=== PATIENT | female | born 2000 | race Caucasian/White ===

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

== ENCOUNTER 2022-07-13 09:55 | Emergency (ER) | payer BC, MEDICAID ==
[~2022-07-13] VITALS: Ht 170.2 cm; Wt 130.0 kg
[2022-07-13] MEDS ORDERED: AMOX-277 PO (11:04)
[2022-07-13] MEDS ORDERED: NAPR500T31 PO (11:04)
[2022-07-13 11:21] VITALS: BP 134/81
== END 2022-07-13 11:24 | disposition home or self-care (01) ==
LOC: ER 09:55
DX: S61.231A Puncture wound without foreign body of left index finger without damage to nail, initial encounter (principal); W54.0XXA Bitten by dog, initial encounter; Y93.89 Activity, other specified; Y92.89 Other specified places as the place of occurrence of the external cause; Y99.8 Other external cause status
CPT/HCPCS: 73130

== ENCOUNTER 2024-04-29 13:08 | Emergency (ER) | payer BC ==
[~2024-04-29] VITALS: Ht 170.2 cm; Wt 84.0 kg
[~2024-04-29 13:08] MED LIST: AMOX875T4 PO; NAPR-746 PO
--- NOTE | 2024-04-29 16:24 | ED.PDOC ---
General HPI Comments 23 Y F with current 12 week presents to the ED with CC of pelvic pain, nausea and vomiting. Patient states she has been experiencing left lower pelvic pain described as cramping with associated symptoms of N/V x3days. Patient states she is 12 weeks and has otherwise had a normal prior to her recent symptoms. Patient denies suprapubic pain, dysuria, vaginal bleeding, abnormal fluid discharge or diarrhea. Chief Complaint: Pelvic Pain Time Seen by MD: 19:00 Primary Care Provider: ho Reviewed notes: Nurses Notes, Medications, Allergies Allergies: Coded Allergies: NO KNOWN ALLERGIES (Unverified , 04/24/17) Home Meds Active Scripts Acetaminophen (Tylenol Extra Strength) 500 Mg Tab, 1000 MG PO Q6HP PRN, #30 TAB prn pain Prov:MILES BROOKS MD 04/29/24 Metoclopramide Hcl (Reglan) 10 Mg Tab, 10 MG PO Q6HPRN PRN, #30 TAB prn n/v Prov:MILES BROOKS MD 04/29/24 Doxylamine-Pyridoxine (DICLEGIS) 1 Tab Tab, 2 TAB OR HS PRN, #60 TAB prn n/v Prov:MILES BROOKS MD 04/29/24 Naproxen (Naproxen) 500 Mg Tab, 500 MG PO BID, #24 TAB Prov:SOHAN LAUREANO 07/13/22 Amoxicillin & Pot Clavulanate (Amoxicillin/Potassium Cla) 875 Mg Tab, 1 TAB PO BID, #14 TAB Prov:SOHAN LAUREANO 07/13/22 Information Source: Patient Mode of Arrival: Ambulatory Severity: Mild Timing: Days Duration: Since onset Prehospital treatment: None Onset: Spontaneous Symptoms: None History of: None Location: (L)Flank Modifying factors: None associated signs and symptoms: Nausea, Vomiting Past Medical History PAST MEDICAL HISTORY: Denies Surgical History: Denies all surgeries [employer] History: Other (Current 12 week , G1, P0) Family History Family History: Unknown Social History Smoker: Non-Smoker Alcohol: Denies ETOH Use Drugs: Denies Drug Use Lives In: Home Constitutional: denies: chills, diaphoresis, fatigue, fever, malaise, sweats, weakness, others EENTM: denies: blurred vision, double vision, ear bleeding, ear discharge, ear drainage, ear pain, ear ringing, eye pain, eye redness, hearing loss, mouth pain, mouth swelling, nasal discharge, nose bleeding, nose congestion, nose pain, photophobia, tearing, throat pain, throat swelling, voice changes, others Respiratory: denies: cough, hemoptysis, orthopnea, SOB at rest, shortness of breath, SOB with excertion, stridor, wheezing, others Cardiovascular: denies: chest pain, dizzy spells, diaphoresis, Dyspnea on exertion, edema, irregular heart beat, left arm pain, lightheadedness, palpitat ions, PND, syncope, others Gastrointestinal: reports: nausea, vomiting; denies: abdomen distended, abdominal pain, blood streaked bowels, constipated, diarrhea, dysphagia, difficulty swallowing, hematemesis, melena, poor appetite, poor fluid intake, rectal bleeding, rectal pain, others Genitourinary: denies: abnormal vagina bleeding, burning, dyspareunia, dysuria, flank pain, frequency, hematuria, incontinence, pain, , vagina discharge, urgency, others Neurological: denies: dizziness, fainting, headache, left sided numbness, left sided weakness, numbness, paresthesia, pre-existing deficit, right sided numbness, right sided weakness, seizure, speech problems, tingling, tremors, weakness, others Musculoskeletal: denies: back pain, gout, joint pain, joint swelling, muscle pain, muscle stiffness, neck pain, others Integumetry: denies: bruises, change in color, change in hair/nails, dryness, laceration, lesions, lumps, rash, wounds, others Hematologic/Lymphatic: denies: anemia, blood clots, easy bleeding, easy bruising, swollen glands, others Endocrine: denies: excessive hunger, excessive sweating, excessive thirst, excessive urination, flushing, intolerance to cold, intolerance to heat, un explained weight gain, unexplained weight loss, others Psychiatric: denies: anxiety, bipolar disorder, depression, hopeless, panic disorder, schizophrenia, sleepless, suicidal, others All Other Systems: Reviewed and Negative Physical Exam General Appearance: No Apparent Distress, Obese HEENT: Other (Moist mucous membranes) Neck: Full Range of Motion, Normal Inspection Respiratory: Lungs Clear, No Accessory Muscle Use, No Respiratory Distress, Normal Breath Sounds Cardiovascular: No Edema, No JVD, Regular Rate/Rhythm Breast Exam: Deferred Gastrointestinal: Non Tender, Soft Genitalia: Deferred Pelvic: Deferred Rectal: Deferred Extremities: Normal inspection, Normal range of motion, Non-tender, No pedal edema Neurologic: Alert (Oriented x4), Normal Affect, Normal Mood, Other (Ambulatory without difficulty. No gross focal deficit.) Cerebellar Function: NOT DONE Reflexes: NOT DONE Skin: Dry, Normal Color, Warm Lymphatic: NOT DONE Was a procedure done? Was a procedure done?: No Differential Diagnosis Kidney stone (Female): Urolithiasis Urinary Problem (Female): UTI Other Differential Diagnosis Hyperemesis gravidarum, gastritis, gastroenteritis, diverticular disease, UTI, kidney stone, electrolyte imbalance, dehydration, viral illness, distress/demise, among others X-Ray, Labs, Meds, VS Vital Signs Date Time Temp Pulse Resp B/P (MAP) Pulse Ox O2 Delivery O2 Flow Rate FiO2 04/29/24 18:27 98.0 100 18 131/96 (108) 98 98.0 04/29/24 18:26 100 18 131/96 04/29/24 17:01 103 16 145/85 04/29/24 16:57 103 18 145/85 (105) 96 04/29/24 16:57 103 18 96 Room Air 04/29/24 13:10 99.3 106 18 146/83 (104) 95 Lab Test 04/29/24 17:05 04/29/24 16:40 Range/Units White Blood Count 14.3 H 4.4-10.8 10^3/uL Red Blood Count 5.24 H 4.0-5.20 10^6/uL Hemoglobin 14.2 12.2-16.2 g/dL Hematocrit 43.0 36.0-46.0 % Mean Corpuscular Volume 82.1 80.0-100.0 fL Mean Corpuscular Hemoglobin 27.2 L 28.0-32.0 pg Mean Corpuscular Hemoglobin Concent 33.1 32.0-36.0 g/dL Red Cell Distribution Width 16.5 H 11.8-14.3 % Platelet Count 299 140-450 10^3/uL Mean Platelet Volume 9.0 6.9-10.8 fL Neutrophils (%) (Auto) 80.2 H 37.0-80.0 % Lymphocytes (%) (Auto) 13.9 10.0-50.0 % Monocytes (%) (Auto) 4.8 0.0-12.0 % Eosinophils (%) (Auto) 0.1 0.0-7.0 % Basophils (%) (Auto) 1.0 0.0-2.0 % Neutrophils # (Auto) 11.5 H 1.6-8.6 10 ^3/uL Lymphocytes # (Auto) 2.0 0.4-5.4 10 ^3/uL Monocytes # (Auto) 0.7 0-1.3 10 ^3/uL Eosinophils # (Auto) 0 0-0.8 10 ^3/uL Basophils # (Auto) 0.1 0-0.2 10 ^3/uL Nucleated Red Blood Cells 0.1 % Sodium Level 138 136-145 mmol/L Potassium Level 4.3 3.5-5.1 mmol/L Chloride Level 106 98-107 mmol/L Carbon Dioxide Level 24 20-31 mmol/L Anion Gap 8 5-15 Blood Urea Nitrogen 10 9-23 mg/dL Creatinine 0.63 0.550-1.02 mg/dL Glomerular Filtration Rate Calc 126 >90 mL/min BUN/Creatinine Ratio 15.9 10.0-20.0 Serum Glucose 90 74-106 mg/dL Lactic Acid Level 1.1 0.4-2.0 mmol/L Calcium Level 10.1 8.7-10.4 mg/dL Total Bilirubin 0.7 0.2-1.0 mg/dL Aspartate Amino Transferase (AST) 19 13-40 U/L Alanine Aminotransferase (ALT) 30 7-40 U/L Alkaline Phosphatase 69 46-116 U/L Total Protein 7.2 5.7-8.2 g/dL Albumin 4.7 3.2-4.8 g/dL Beta HCG, Quantitative 28918.3 H 1.5-4.2 mIU/mL Urine Color Yellow Yellow Urine Clarity Turbid H Clear Urine pH 6.0 5.0-9.0 Urine Specific [place] 1.035 1.001-1.035 Urine Protein 1+ H Negative Urine Ketones 4+ H Negative Urine Blood Negative Negative /uL Urine Nitrite Negative Negative Urine Bilirubin Negative Negative Urine Urobilinogen 3 H Negative mg/dL Urine Leukocyte Esterase Negative Negative /uL Urine RBC 1 0 - 4 /hpf Urine WBC 4 0 - 5 /hpf Urine Squamous Epithelial Cells Mod <5 /hpf Urine Bacteria None seen None Seen /hpf Urine Hyaline Casts Few 0 - 2 /lpf Urine Mucus Few None Seen Urine Glucose Normal Normal mg/dL Current Medications Medications (Trade) Dose Ordered Sig/Alexandrea Route Start Time Stop Time Status Last Admin Sodium Chloride 1,000 ml @ 1,000 mls/hr Q1H ONCE IV 04/29/24 16:15 04/29/24 17:14 DC 04/29/24 16:58 Morphine Sulfate 4 mg ONCE ONCE IV 04/29/24 16:15 04/29/24 16:16 DC 04/29/24 17:01 Ondansetron HCl (Zofran) 4 mg ONCE ONCE IV 04/29/24 16:15 04/29/24 16:16 DC 04/29/24 16:57 [place] [address] Ph: [phone] DIAGNOSTIC IMAGING Diagnostic Imaging Report : [id number] Signed PATIENT: CARLOS STACK RACCT: [id number] UNIT: [id number] : 2000 LOC: ER ROOM / BED: / AGE / SEX: 23 / F ADM STATUS: REG ER SERVICE 1614 ORDERING PHYSICIAN: MILES BROOKS MD PROCEDURE(s): OB4US - OB ULTRASOUND COMP LESS 14WKS REASON: LLQ pain n/v ORDER NUMBER(s): [id number], ACCESSION NUMBER(s): [id number] EXAM: US OB ULTRASOUND COMP LESS 14WKS CLINICAL HISTORY: LLQ pain n/v COMPARISON: None TECHNIQUE: Grayscale, color-flow Doppler, and spectral Doppler ultrasound of the pelvis is performed by transabdominal technique. Findings: Single live intrauterine with gestational sac, yolk sac and embryo visualized. heart rate of 163 bpm. Estimated gestational age 12 weeks 0 days based on parameters including crown-rump length of 5.4. Uterus measures 12.0 x 5.9 x 9.6 cm in size. Cervical os appears closed. No evidence of subchorionic hemorrhage. Right ovary not visualized. Left ovary measures 3.0 x 1.7 x 2.3 cm. Normal left ovarian color Doppler. No free fluid within the cul-de-sac. Impression: 1. Single live intrauterine with heart rate of 163 bpm. Estimated gestational age 12 weeks 0 days with estimated date of confinement 11/11/2024. 2. No evidence of subchorionic hemorrhage. Cervical os appears closed. 3. Left ovary is grossly unremarkable. ATED BY: JOSELIN BRIONES DO DICTATED DATE/TIME: 04/29/241829 SIGNED BY: JOSELIN BRIONES DO SIGNED DATE/TIME: 04/29/241829 CC: X-Ray, Labs, Meds, VS Comment 23-year-old female with current 12 week complaining of nausea, vomiting and left lower pelvic cramping Vitals remarkable for heart rate 106, BP 146/83 Exam unremarkable Rhythm strip independently interpreted by me: Sinus tach, rate 100, no ectopy. Ob ultrasound: Impression: 1. Single live intrauterine with heart rate of 163 bpm. Estimated gestational age 12 weeks 0 days with estimated date of confinement 11/11/2024. 2. No evidence of subchorionic hemorrhage. Cervical os appears closed. 3. Left ovary is grossly unremarkable. CBC remarkable for WBC 14.3, CMP unremarkable, serum quantitative hCG 01400.3 Lactate normal No other abnormalities of acute significance Patient treated with the following in the ED: 1 L 0.9 normal saline IV bolus, morphine 4 mg IV, Zofran 4 mg IV On re-evaluation, patient states cramping has resolved, vitals are stable, and she tolerated p.o. fluids. Hospitalization was considered, however patient had rapid improvement of her symptoms with treatment in the ED, and I no longer feel hospitalization is nece ssary. Patient appears stable for outpatient treatment with close follow-up with her OBGYN. Rx diclegis, Reglan, Tylenol Time of 1ST Reevaluation: 19:30 Reevaluation 1ST: Unchanged Patient Education/Counseling: Diagnosis, Treatment Family Education/Counseling: No Family Present Departure 1 Departure Time of Disposition: 20:00 Impression: Primary Impression: Abdominal pain affecting Additional Impression: Hyperemesis gravidarum Disposition: HOME / SELF CARE / HOMELESS Condition: Stable Additional Instructions: Your blood tests and urine tests were essentially unremarkable. Your ultrasound showed the baby looks well. Please see the report below. Follow-up with your OBGYN in 1-2 days. I have prescribed medication for pain, nausea and vomiting. [address] [address] Ph: [phone] DIAGNOSTIC IMAGING Diagnostic Imaging Report : [id number] Signed PATIENT: CARLOS STACK ACCT: [id number] UNIT: [id number] : 2000 LOC: ER ROOM / BED: / AGE / SEX: 23 / F ADM STATUS: REG ER SERVICE 1614 ORDERING PHYSICIAN: MILES BROOKS MD PROCEDURE(s): OB4US - OB ULTRASOUND COMP LESS 14WKS REASON: LLQ pain n/v ORDER NUMBER(s): [id number], ACCESSION NUMBER(s): [id number] EXAM: US OB ULTRASOUND COMP LESS 14WKS CLINICAL HISTORY: LLQ pain n/v COMPARISON: None TECHNIQUE: Grayscale, color-flow Doppler, and spectral Doppler ultrasound of the pelvis is performed by transabdominal technique. Findings: Single live intrauterine with gestational sac, yolk sac and embryo visualized. heart rate of 163 bpm. Estimated gestational age 12 weeks 0 days based on parameters including crown-rump length of 5.4. Uterus measures 12.0 x 5.9 x 9.6 cm in size. Cervical os appears closed. No evidence of subchorionic hemorrhage. Right ovary not visualized. Left ovary measures 3.0 x 1.7 x 2.3 cm. Normal left ovarian color Doppler. No free fluid within the cul-de-sac. Impression: 1. Single live intrauterine with heart rate of 163 bpm. Estimated gestational age 12 weeks 0 days with estimated date of confinement 11/11/2024. 2. No evidence of subchorionic hemorrhage. Cervical os appears closed. 3. Left ovary is grossly unremarkable. ATED BY: JOSELIN BRIONES DO DICTATED DATE/TIME: 04/29/24 1830 e-Prescriptions Acetaminophen (Tylenol Extra Strength) 500 Mg Tab 1000 MG PO Q6HP PRN, #30 TAB prn pain Prov: MILES BROOKS MD 04/29/24 Metoclopramide Hcl (Reglan) 10 Mg Tab 10 MG PO Q6HPRN PRN, #30 TAB prn n/v Prov: MILES BROOKS MD 04/29/24 Doxylamine-Pyridoxine (DICLEGIS) 1 Tab Tab 2 TAB OR HS PRN, #60 TAB prn n/v Prov: MILES BROOKS MD 04/29/24 Discharged With: Relative Critical Care Note Critical Care Time?: No Stability Stability form required: No Heart Score Heart Score: Heart Score Response (Comments) Value History N/A 0 EKG N/A 0 Age N/A 0 Risk Factors N/A 0 Troponin N/A 0 Total 0 I personally scribed for MILES BROOKS MD ([email or web address]) on 04/29/24 at 16:24. Electronically submitted by Alicia Juarez ([email or web address]). I personally scribed for MILES BROOKS MD ([email or web address]) on 04/29/24 at 18:47. Electronically submitted by Alicia Juarez ([email or web address]). I personally scribed for MILES BROOKS MD ([email or web address]) on 04/29/24 at 19:44. Electronically submitted by Alicia Juarez ([email or web address]). MILES BROOKS MD Apr 29, 2024 16:24
[2024-04-29] MEDS: ONDANSETRON HCL 4 MG/2 ML VIAL IV ONE (16:57)
[2024-04-29] MEDS: SODIUM CHLORIDE 0.9% 1,000 ML IV ONE (16:58)
[2024-04-29] MEDS: MORPHINE SULFATE 4 MG/ML SYR/VIAL IV ONE (17:01)
[2024-04-29 17:21] LABS: Basophils # (auto) 0.1 10 ^3/uL (0-0.2); Eosinophils # (auto) 0 10 ^3/uL (0-0.8); Eosinophils % (auto) 0.1 % (0.0-7.0); Hemoglobin 14.2 g/dL (12.2-16.2); Lymphocytes % (auto) 13.9 % (10.0-50.0); Mean Corpuscular Hemoglobin 27.2 pg (28.0-32.0); Mean Corpuscular Hgb Conc. 33.1 g/dL (32.0-36.0); Mean Corpuscular Volume 82.1 fL (80.0-100.0); Monocytes # (auto) 0.7 10 ^3/uL (0-1.3); Monocytes % (auto) 4.8 % (0.0-12.0); Neutrophils # (auto) 11.5 10 ^3/uL (1.6-8.6); Neutrophils % (auto) 80.2 % (37.0-80.0); Nucleated Red Blood Cells % 0.1 %; Platelet Count (auto) 299 10^3/uL (140-450); Red Blood Cells 5.24 10^6/uL (4.0-5.20); Red Cell Distribution Width 16.5 % (11.8-14.3); White Blood Cell 14.3 10^3/uL (4.4-10.8)
[2024-04-29 17:36] LABS: Alanine Aminotransferase 30 U/L (7-40); Albumin 4.7 g/dL (3.2-4.8); Alkaline Phosphatase 69 U/L (46-116); Anion Gap 8 (5-15); Aspartate Aminotransferase 19 U/L (13-40); BUN/Creatinine Ratio 15.9 (10.0-20.0); Bilirubin, Total 0.7 mg/dL (0.2-1.0); Blood Urea Nitrogen 10 mg/dL (9-23); Calcium 10.1 mg/dL (8.7-10.4); Carbon Dioxide 24 mmol/L (20-31); Chloride 106 mmol/L (98-107); Glucose 90 mg/dL (74-106); Potassium 4.3 mmol/L (3.5-5.1); Sodium 138 mmol/L (136-145); Total Protein 7.2 g/dL (5.7-8.2)
--- NOTE | 2024-04-29 18:33 | DVH ---
EXAM: US OB ULTRASOUND COMP LESS 14WKS CLINICAL HISTORY: LLQ pain n/v COMPARISON: None TECHNIQUE: Grayscale, color-flow Doppler, and spectral Doppler ultrasound of the pelvis is performed by transabdominal technique. Findings: Single live intrauterine with gestational sac, yolk sac and embryo visualized. heart rate of 163 bpm. Estimated gestational age 12 weeks 0 days based on parameters including crown- rump length of 5.4. Uterus measures 12.0 x 5.9 x 9.6 cm in size. Cervical os appears closed. No evidence of subchorionic hemorrhage. Right ovary not visualized. Left ovary measures 3.0 x 1.7 x 2.3 cm. Normal left ovarian color Doppler . No free fluid within the cul-de-sac. Impression: 1. Single live intrauterine with heart rate of 163 bpm. Estimated gestational age 12 weeks 0 days with estimated date of confinement 11/11/2024. 2. No evidence of subchorionic hemorrhage. Cervical os appears closed. 3. Left ovary is grossly unremarkable.
[2024-04-29 18:39] LABS: Urine Bacteria None Seen /hpf (None Seen)
[2024-04-29 19:15] LABS: Urine Blood Negative /uL (Negative); Urine Clarity Turbid (Clear); Urine Color Yellow (Yellow); Urine Hyaline Cast FEW /lpf (0 - 2); Urine Mucus FEW (None Seen); Urine Protein, UAD 1+ (Negative); Urine Specific Gravity 1.035 (1.001-1.035); Urine Squamous Epithelial Cell MOD /hpf (<5); Urine Urobilinogen 3 mg/dL (Negative); Urine WBC 4 /hpf (0 - 5)
[2024-04-29] MEDS ORDERED: ACET-1304 PO (20:10)
[2024-04-29] MEDS ORDERED: DOXY10TA OR (20:10)
[2024-04-29] MEDS ORDERED: METO-281 PO (20:10)
[2024-04-29 20:45] VITALS: BP 130/77; PULSE 98; RESP 18; TEMP 98.1; O2SAT 99
== END 2024-04-29 20:45 | disposition home or self-care (01) ==
LOC: ER 13:50
DX: O26.891 Other specified pregnancy related conditions, first trimester (principal); R10.2 Pelvic and perineal pain; O21.0 Mild hyperemesis gravidarum; Z79.899 Other long term (current) drug therapy; Z3A.12 12 weeks gestation of pregnancy
CPT/HCPCS: 36415; 76801; 80053; 81001; 83605; 84702; 85025; 87086; 96361; 96374; 96375; 99285; J2270; J2405; J7030

== ENCOUNTER 2025-02-18 03:20 | Inpatient (IN) | payer BC ==
[2025-02-18] VITALS (7 sets, daily range): BP systolic 104–126; BP diastolic 61–80; PULSE 68–94; RESP 17–18; TEMP 97.6–98.1; O2SAT 98–100
[~2025-02-18] VITALS: Ht 170.2 cm; Wt 145.7 kg
[~2025-02-18 03:20] MED LIST changes: +ACET-1304 PO; +DOXY10TA OR; +METO-281 PO
--- NOTE | 2025-02-18 03:39 | ED.PDOC ---
GI ASSESSMENT HPI Comments 24 year old female came to ER due to abdominal pain. Patient has no medical problems nor does she have any abdominal surgeries. States since 1900 hours last night, she has been having constant RUQ/ periumbilical abdominal pain radiating to her back, associated with nausea and urinary frequcny. Denies any fever, vomiting, changes in bowel habits or dysuria/ hematuria. Patient medicated with Tylenol but offered no relief REVIEW OF SYSTEMS: General: No fever, no chills, or fatigue HEENT: No sore throat, no earache, no congestion, no neck pain. Cardiac: No chest pain. No palpitations. Lungs: No shortness of breath, no cough. GI: No nausea, no vomiting, no diarrhea, no constipation, (+) abdominal pain : No dysuria, frequency, or urgency. No hematuria. Musculoskeletal: No joint pain , no joint swelling, no extremity edema. (+) back pain Skin: No rash, no itching. Neuro: No headache, no dizziness, no weakness EXAM: General: Awake, alert and oriented. No acute distress. Skin: Skin in warm, dry and intact. Appropriate color for ethnicity. HEENT: The head is normocephalic and atraumatic. Conjunctivae are clear without exudates or hemorrhage. Sclera is non-icteric. EOM are intact. No signs of n ystagmus. Eyelids are normal in appearance without swelling or lesions. Oral mucosa is pink and moist Neck: The neck is supple with normal range of motion. No JVD. Cardiac: Heart rate and rhythm are normal. No murmurs, gallops, or rubs are auscultated. Respiratory: No signs of respiratory distress. Lung sounds are clear in all lobes bilaterally without rales, rhonchi, or wheezes. Abdominal: Abdomen is soft, non-tender without distention. Bowel sounds are present and normoactive in all four quadrants. Extremities: Upper and lower extremities are atraumatic in appearance without deformity or edema. Neurological: The patient is awake, alert and oriented to person, place, and time with normal speech. Speech is clear. There is no facial asymmetry. Psychiatric: Appropriate mood and affect. Good judgement and insight Chief Complaint: Abdominal Pain Time Seen by MD: 03:39 Primary Care Provider: denies Reviewed Notes: Nurses Notes Allergies: Coded Allergies: NO KNOWN ALLERGIES (Unverified , 04/24/17) Home Meds Active Scripts Acetaminophen (Tylenol Extra Strength) 500 Mg Tab, 1000 MG PO Q6HP PRN, #30 TAB prn pain Prov:MILES BROOKS MD 04/29/24 Metoclopramide Hcl (Reglan) 10 Mg Tab, 10 MG PO Q6HPRN PRN, #30 TAB prn n/v Prov:MILES BROOKS MD 04/29/24 Doxylamine-Pyridoxine (DICLEGIS) 1 Tab Tab, 2 TAB OR HS PRN, #60 TAB prn n/v Prov:MILES BROOKS MD 04/29/24 Naproxen (Naproxen) 500 Mg Tab, 500 MG PO BID, #24 TAB Prov:SOHAN LAUREANO 07/13/22 Amoxicillin & Pot Clavulanate (Amoxicillin/Potassium Cla) 875 Mg Tab, 1 TAB PO BID, #14 TAB Prov:SOHAN LAUREANO 07/13/22 Information Source: Patient Mode of Arrival: Ambulatory Past Medical History PAST MEDICAL HISTORY: Denies Surgical History: Tonsillectomy IMPLANT COORDINATOR History: Denies all IMPLANT COORDINATOR Hx, Other Family History Family History: Reviewed,noncontributory to illness, Unknown Social History Smoker: Non-Smoker Alcohol: Denies ETOH Use Drugs: Denies Drug Use Lives In: Home Was a procedure done? Was a procedure done?: No GI differential Dx Differential Diagnosis: Diverticular disease, Gastritis/PUD, Gastroenteritis, Hernia, Hepatitis, Pancreatitis, UTI, Urolithiasis X-Ray, Labs, Meds, VS Vital Signs Date Time Temp Pulse Resp B/P (MAP) Pulse Ox O2 Delivery O2 Flow Rate FiO2 02/18/25 03:21 97.1 86 18 147/98 98 97.1 Lab Test 02/18/25 04:13 02/18/25 03:53 Range/Units Urine Color Light-yellow Yellow Urine Clarity Clear Clear Urine pH 5.5 5.0-9.0 Urine Specific [place] 1.021 1.001-1.035 Urine Protein Negative Negative Urine Ketones Negative Negative Urine Blood Negative Negative /uL Urine Nitrite Negative Negative Urine Bilirubin Negative Negative Urine Urobilinogen Normal Negative mg/dL Urine Leukocyte Esterase 1+ Negative /uL Urine RBC None seen 0 - 4 /hpf Urine Microscopic WBC 2 0-5 /HPF Urine Squamous Epithelial Cells Few <5 /hpf Urine Bacteria None seen None Seen /hpf Urine Mucus Few None Seen Urine Glucose Normal Normal mg/dL Urine Test Negative Negative White Blood Count 11.6 H 4.4-10.8 10^3/uL Red Blood Count 4.75 4.0-5.20 10^6/uL Hemoglobin 10.6 L 12.2-16.2 g/dL Hematocrit 33.7 L 36.0-46.0 % Mean Corpuscular Volume 71.0 L 80.0-100.0 fL Mean Corpuscular Hemoglobin 22.3 L 28.0-32.0 pg Mean Corpuscular Hemoglobin Concent 31.4 L 32.0-36.0 g/dL Red Cell Distribution Width 17.1 H 11.8-14.3 % Platelet Count 332 140-450 10^3/uL Mean Platelet Volume 9.1 6.9-10.8 fL Neutrophils (%) (Auto) 74.5 37.0-80.0 % Lymphocytes (%) (Auto) 19.8 10.0-50.0 % Monocytes (%) (Auto) 4.3 0.0-12.0 % Eosinophils (%) (Auto) 0.6 0.0-7.0 % Basophils (%) (Auto) 0.8 0.0-2.0 % Neutrophils # (Auto) 8.6 1.6-8.6 10 ^3/uL Lymphocytes # (Auto) 2.3 0.4-5.4 10 ^3/uL Monocytes # (Auto) 0.5 0-1.3 10 ^3/uL Eosinophils # (Auto) 0.1 0-0.8 10 ^3/uL Basophils # (Auto) 0.1 0-0.2 10 ^3/uL Nucleated Red Blood Cells 0.1 % Sodium Level 139 136-145 mmol/L Potassium Level 4.2 3.5-5.1 mmol/L Chloride Level 103 98-107 mmol/L Carbon Dioxide Level 25 20-31 mmol/L Anion Gap 11 5-15 Blood Urea Nitrogen 10 9-23 mg/dL Creatinine 0.79 0.550-1.02 mg/dL Glomerular Filtration Rate Calc 106 >90 mL/min BUN/Creatinine Ratio 12.7 10.0-20.0 Serum Glucose 110 H 74-106 mg/dL Lactic Acid Level 1.1 0.4-2.0 mmol/L Calcium Level 10.1 8.7-10.4 mg/dL Total Bilirubin 0.5 0.2-1.0 mg/dL Aspartate Amino Transferase (AST) 106 H 13-40 U/L Alanine Aminotransferase (ALT) 58 H 7-40 U/L Alkaline Phosphatase 116 46-116 U/L Total Protein 7.8 5.7-8.2 g/dL Albumin 4.6 3.2-4.8 g/dL Lipase 35 12-53 U/L Current Medications Medications (Trade) Dose Ordered Sig/Alexandrea Route Start Time Stop Time Status Last Admin Ketorolac Tromethamine (Toradol Injection) 30 mg ONCE ONCE IM 02/18/25 03:45 02/18/25 03:46 DC 02/18/25 06:00 Tramadol HCl (Ultram) 50 mg ONCE ONCE PO 02/18/25 03:45 02/18/25 03:46 DC 02/18/25 06:00 Al Hydrox/Mg Hydrox/Simethicone (Maalox Plus) 30 ml ONCE ONCE PO 02/18/25 03:45 02/18/25 03:46 DC 02/18/25 05:59 Lidocaine HCl (Xylocaine 2% Viscous) 10 ml ONCE ONCE PO 02/18/25 03:45 02/18/25 03:46 DC 02/18/25 05:59 Time of 1ST Reevaluation: 03:35 Reevaluation 1ST: Unchanged Patient Education/Counseling: Need For Follow Up Family Education/Counseling: No Family Present SEPSIS Sepsis Screen Date sepsis recognized/suspect: Feb 18, 2025 Time Sepsis recognized/suspect: 324 Recent Procedure: No On Antibiotic Therapy: No Respiratory Rate >20: No Heart Rate >90: No Temp<36 C (96.8 F) or >38.3 C: No SBP <90 or MAP <65 mmHG: No New Acute Mental Status Change: No Is the patient on CPAP, BIPAP,: No Physician Orders Ct Ab Pel Wo Con-No Oral Or Iv (02/18/25 03:41) Vital Signs Date Time Temp Pulse Resp B/P (MAP) Pulse Ox O2 Delivery O2 Flow Rate FiO2 02/18/25 03:21 97.1 86 18 147/98 98 97.1 Laboratory Tests Test 02/18/25 03:53 Lactic Acid Level 1.1 mmol/L (0.4-2.0) White Blood Count 11.6 10^3/uL (4.4-10.8) H Medications Medications Dose Ordered Sig/Alexandrea Route Start Time Stop Time Status Last Admin Dose Admin Al Hydrox/Mg Hydrox/Simethicone 30 ml ONCE ONCE PO 02/18/25 03:45 02/18/25 03:46 DC 02/18/25 05:59 Ketorolac Tromethamine 30 mg ONCE ONCE IM 02/18/25 03:45 02/18/25 03:46 DC 02/18/25 06:00 Lidocaine HCl 10 ml ONCE ONCE PO 02/18/25 03:45 02/18/25 03:46 DC 02/18/25 05:59 Tramadol HCl 50 mg ONCE ONCE PO 02/18/25 03:45 02/18/25 03:46 DC 02/18/25 06:00 Departure 1 Departure Time of Disposition: 06:01 Impression: Primary Impression: Abdominal pain Additional Impressions: Elevated LFTs Leukocytosis Hypertension Hypothermia Disposition: ADMITTED INPATIENT Condition: Stable Comments 24 year old female with ongoing abdominal pain and leukocytosis. New elevation of LFTs. Hepatic steatosis on CT abdomen pelvis. Patient admitted to hospitalist service for further treatment, evaluation and monitoring. Critical Care Note Critical Care Time?: No Stability Stability form required: No Heart Score Heart Score: Heart Score Response (Comments) Value History N/A 0 EKG N/A 0 Age N/A 0 Risk Factors N/A 0 Troponin N/A 0 Total 0 I personally scribed for MAYRA DREW MD ([email or web address]) on 02/18/25 at 03:39. Electronically submitted by Don Lousi ([email or web address]). MAYRA DREW MD Feb 18, 2025 03:39
[2025-02-18 04:28] LABS: Hemoglobin 10.6 g/dL (12.2-16.2)
[2025-02-18 04:29] LABS: Hematocrit 33.7 % (36.0-46.0); Mean Corpuscular Hemoglobin 22.3 pg (28.0-32.0); Mean Corpuscular Volume 71.0 fL (80.0-100.0); Nucleated Red Blood Cells % 0.1 %
[2025-02-18 04:45] LABS: Albumin 4.6 g/dL (3.2-4.8); Alkaline Phosphatase 116 U/L (46-116); Anion Gap 11 (5-15); BUN/Creatinine Ratio 12.7 (10.0-20.0); Blood Urea Nitrogen 10 mg/dL (9-23); Calcium 10.1 mg/dL (8.7-10.4); Carbon Dioxide 25 mmol/L (20-31); Chloride 103 mmol/L (98-107); Lipase 35 U/L (12-53); Potassium 4.2 mmol/L (3.5-5.1); Sodium 139 mmol/L (136-145); Total Protein 7.8 g/dL (5.7-8.2)
[2025-02-18 04:46] LABS: Bilirubin, Total 0.5 mg/dL (0.2-1.0)
[2025-02-18 04:54] LABS: Alanine Aminotransferase 58 U/L (7-40); Glucose 110 mg/dL (74-106)
[2025-02-18 05:20] LABS: Urine Protein, UAD Negative (Negative)
--- NOTE | 2025-02-18 05:48 | DVH ---
Exam: CT CT AB PEL WO CON-NO ORAL OR IV History: Epigastric/right upper quadrant abdominal pain Comparison Study: None Technique: Multidetector spiral CT of the abdomen and pelvis was performed from lung bases to pubic s ymphysis. Imaging was performed without intravenous contrast. Coronal and sagittal multiplanar reform ats were obtained from the axial data set by the technologist. Radiation Dose : 1. Abdomen/Pelvis: CTDIvol 27.87 mGy, DLP 1761.6 mGy*cm. Findings: Evaluation of vasculature and solid organs is limited due to lack of intravenous contrast use. Lung Bases: Lung bases are clear. Visualized portions of the heart and pericardium are unremarkable. Liver: The liver is normal in size. No focal lesions. Diffusely hypoattenuating liver parenchyma con sistent with hepatic steatosis. Gallbladder and Biliary Tree: The gallbladder is unremarkable. No intrahepatic or extrahepatic biliar y ductal dilatation. Spleen: Unremarkable Pancreas: The pancreas is grossly unremarkable. Adrenal Glands: Unremarkable Kidneys: Kidneys are unremarkable without calculi or hydronephrosis. GI tract: The stomach is grossly normal in appearance. No evidence of small bowel wall thickening or abnormal dilatation to suggest bowel obstruction. The colon is unremarkable. The appendix is visualiz ed and is normal. Peritoneum/mesentery/retroperitoneum. No evidence of free intraperitoneal air. No ascites. No evidenc e of suspicious lymphadenopathy. Abdominal Wall: Unremarkable. Vasculature: The visualized abdominal aorta is normal in size and caliber. Evaluation of abdominal a nd pelvic vessels is limited due to lack of intravenous contrast. Urinary Bladder: Grossly unremarkable for degree of distention. Pelvic Organs: Unremarkable Musculoskeletal: No aggressive focal bony lesions, acute fractures or dislocation. IMPRESSION: 1. No acute abdominal or pelvic findings. 2. Hepatic steatosis.
[2025-02-18] MEDS: MAALOX PLUS or MAALOX 30 ML PO ONE (05:59)
[2025-02-18] MEDS: LIDOCAINE VISCOUS 2% 15ML UD PO ONE (05:59)
[2025-02-18] MEDS: KETOROLAC TROMETH 30 MG/ML 1ML VIAL IM ONE (06:00)
--- NOTE | 2025-02-18 07:56 | DVHHP2 ---
History of Present Illness Reason for Visit: Abdominal pain History of Present Illness Ni Dominguez is a 24-year-old female with past medical history of tonsillectomy who presents to the ED with abdominal pain that started 3 days ago. She states that it was worsening last night around 7:00 p.m.. Reports that the pain is 10/10 throbbing and constant. She states there are no triggering or alleviating factors. Patient endorses that she has seems it is there gallbladder as she was informed that her liver enzymes were high. Patient reports that she is 3 months . She reports that her prior UTIs did not have this type of symptom. She reports that last night she was crying lying on the floor due to the pain. Patient denies any alcohol use. Patient denies any recent trauma or injury, recent sick contacts, recent travels , recent ingestion of spoiled food, chest pain, shortness of breath, fever, chills, lightheadedness, weakness, dizziness, nausea, vomiting, diarrhea or urinary symptoms. Past Surgical History: Tonsillectomy Family History: None Smoke: No ALCOHOL: none Drugs: None Lives: with Family Domestic Violence: Neg Review of Systems Gastrointestinal: Abdominal Pain Allergies: Coded Allergies: NO KNOWN ALLERGIES (Unverified , 04/24/17) Exam Vital Signs Vital Signs Date Time Temp Pulse Resp B/P (MAP) Pulse Ox O2 Delivery O2 Flow Rate FiO2 02/18/25 06:20 74 18 100 Room Air* 0 21 02/18/25 06:20 97.9 131/84 (100) 97.9 General Appearance: Alert, Oriented X3, Cooperative, No acute distress HEENT: Atraumatic, PERRLA, EOMI, Mucous membr. moist/pink Respiratory: Clear to auscultation, Normal air movement Cardiovascular: Regular rate, Normal S1, Normal S2, No murmurs Abdominal: Normal bowel sounds, Soft Extremities: No clubbing, No cyanosis, Normal pulses Neuro: Normal gait, Normal speech, Strength at 5/5 X4 ext, Normal tone, Sensation intact Psych/Mental Status: Mental status NL, Mood NL Labs/Xrays Labs Test 02/18/25 06:11 02/18/25 04:13 02/18/25 03:53 Range/Units Troponin I High Sensitivity < 3 L </=34 ng/L Urine Color Light-yellow Yellow Urine Clarity Clear Clear Urine pH 5.5 5.0-9.0 Urine Specific [place] 1.021 1.001-1.035 Urine Protein Negative Negative Urine Ketones Negative Negative Urine Blood Negative Negative /uL Urine Nitrite Negative Negative Urine Bilirubin Negative Negative Urine Urobilinogen Normal Negative mg/dL Urine Leukocyte Esterase 1+ Negative /uL Urine RBC None seen 0 - 4 /hpf Urine Microscopic WBC 2 0-5 /HPF Urine Squamous Epithelial Cells Few <5 /hpf Urine Bacteria None seen None Seen /hpf Urine Mucus Few None Seen Urine Glucose Normal Normal mg/dL Urine Test Negative Negative White Blood Count 11.6 H 4.4-10.8 10^3/uL Red Blood Count 4.75 4.0-5.20 10^6/uL Hemoglobin 10.6 L 12.2-16.2 g/dL Hematocrit 33.7 L 36.0-46.0 % Mean Corpuscular Volume 71.0 L 80.0-100.0 fL Mean Corpuscular Hemoglobin 22.3 L 28.0-32.0 pg Mean Corpuscular Hemoglobin Concent 31.4 L 32.0-36.0 g/dL Red Cell Distribution Width 17.1 H 11.8-14.3 % Platelet Count 332 140-450 10^3/uL Mean Platelet Volume 9.1 6.9-10.8 fL Neutrophils (%) (Auto) 74.5 37.0-80.0 % Lymphocytes (%) (Auto) 19.8 10.0-50.0 % Monocytes (%) (Auto) 4.3 0.0-12.0 % Eosinophils (%) (Auto) 0.6 0.0-7.0 % Basophils (%) (Auto) 0.8 0.0-2.0 % Neutrophils # (Auto) 8.6 1.6-8.6 10 ^3/uL Lymphocytes # (Auto) 2.3 0.4-5.4 10 ^3/uL Monocytes # (Auto) 0.5 0-1.3 10 ^3/uL Eosinophils # (Auto) 0.1 0-0.8 10 ^3/uL Basophils # (Auto) 0.1 0-0.2 10 ^3/uL Nucleated Red Blood Cells 0.1 % Sodium Level 139 136-145 mmol/L Potassium Level 4.2 3.5-5.1 mmol/L Chloride Level 103 98-107 mmol/L Carbon Dioxide Level 25 20-31 mmol/L Anion Gap 11 5-15 Blood Urea Nitrogen 10 9-23 mg/dL Creatinine 0.79 0.550-1.02 mg/dL Glomerular Filtration Rate Calc 106 >90 mL/min BUN/Creatinine Ratio 12.7 10.0-20.0 Serum Glucose 110 H 74-106 mg/dL Lactic Acid Level 1.1 0.4-2.0 mmol/L Calcium Level 10.1 8.7-10.4 mg/dL Total Bilirubin 0.5 0.2-1.0 mg/dL Aspartate Amino Transferase (AST) 106 H 13-40 U/L Alanine Aminotransferase (ALT) 58 H 7-40 U/L Alkaline Phosphatase 116 46-116 U/L Total Protein 7.8 5.7-8.2 g/dL Albumin 4.6 3.2-4.8 g/dL Lipase 35 12-53 U/L Exam: CT CT AB PEL WO CON-NO ORAL OR IV History: Epigastric/right upper quadrant abdominal pain Comparison Study: None Technique: Multidetector spiral CT of the abdomen and pelvis was performed from lung bases to pubic symphysis. Imaging was performed without intravenous contrast. Coronal and sagittal multiplanar reformats were obtained from the axial data set by the technologist. Radiation Dose : 1. Abdomen/Pelvis: CTDIvol 27.87 mGy, DLP 1761.6 mGy*cm. Findings: Evaluation of vasculature and solid organs is limited due to lack of intravenous contrast use. Lung Bases: Lung bases are clear. Visualized portions of the heart and pericardium are unremarkable. Liver: The liver is normal in size. No focal lesions. Diffusely hypoattenuating liver parenchyma consistent with hepatic steatosis. Gallbladder and Biliary Tree: The gallbladder is unremarkable. No intrahepatic or extrahepatic biliary ductal dilatation. Spleen: Unremarkable Pancreas: The pancreas is grossly unremarkable. Adrenal Glands: Unremarkable Kidneys: Kidneys are unremarkable without calculi or hydronephrosis. GI tract: The stomach is grossly normal in appearance. No evidence of small bowel wall thickening or abnormal dilatation to suggest bowel obstruction. The colon is unremarkable. The appendix is visualized and is normal. Peritoneum/mesentery/retroperitoneum. No evidence of free intraperitoneal air. No ascites. No evidence of suspicious lymphadenopathy. Abdominal Wall: Unremarkable. Vasculature: The visualized abdominal aorta is normal in size and caliber. Evaluation of abdominal and pelvic vessels is limited due to lack of intravenous contrast. Urinary Bladder: Grossly unremarkable for degree of distention. Pelvic Organs: Unremarkable Musculoskeletal: No aggressive focal bony lesions, acute fractures or dislocation. IMPRESSION: 1. No acute abdominal or pelvic findings. 2. Hepatic steatosis. SEPSIS Sepsis Screen Date sepsis recognized/suspect: Feb 18, 2025 Time Sepsis recognized/suspect: 324 Recent Procedure: No On Antibiotic Therapy: No Respiratory Rate >20: No Heart Rate >90: No Temp<36 C (96.8 F) or >38.3 C: No SBP <90 or MAP <65 mmHG: No New Acute Mental Status Change: No Is the patient on CPAP, BIPAP,: No Physician Orders Ct Ab Pel Wo Con-No Oral Or Iv (02/18/25 03:41) Electrocardigram (02/18/25 06:02) Troponin-I Hs (02/18/25 07:02) Troponin-I Hs (02/18/25 09:02) Electrocardigram (02/18/25 07:02) Electrocardigram (02/18/25 09:02) Vital Signs Date Time Temp Pulse Resp B/P (MAP) Pulse Ox O2 Delivery O2 Flow Rate FiO2 02/18/25 06:20 74 18 100 Room Air* 0 21 02/18/25 06:20 97.9 74 18 131/84 (100) 100 97.9 02/18/25 03:21 97.1 86 18 147/98 98 97.1 Laboratory Tests Test 02/18/25 03:53 Lactic Acid Level 1.1 mmol/L (0.4-2.0) White Blood Count 11.6 10^3/uL (4.4-10.8) H Medications Medications Dose Ordered Sig/Alexandrea Route Start Time Stop Time Status Last Admin Dose Admin Al Hydrox/Mg Hydrox/Simethicone 30 ml ONCE ONCE PO 02/18/25 03:45 02/18/25 03:46 DC 02/18/25 05:59 30 ML Ceftriaxone Sodium 50 ml @ 100 mls/hr ONCE ONCE IV 02/18/25 06:15 02/18/25 06:44 DC 02/18/25 06:48 100 MLS/HR Ketorolac Tromethamine 30 mg ONCE ONCE IM 02/18/25 03:45 02/18/25 03:46 DC 02/18/25 06:00 30 MG Lidocaine HCl 10 ml ONCE ONCE PO 02/18/25 03:45 02/18/25 03:46 DC 02/18/25 05:59 10 ML Tramadol HCl 50 mg ONCE ONCE PO 02/18/25 03:45 02/18/25 03:46 DC 02/18/25 06:00 50 MG Assessment/Plan Assessment/Plan Assessment Intractable abdominal pain likely due to UTI Leukocytosis likely due to UTI Hepatic steatosis Microcytic anemia Morbid obesity Transaminitis History of tonsillectomy Plan Admit to [facility] IV antibiotics-ceftriaxone Lidocaine given in ED Antiemetics Pain management EKG Troponin CT abdomen and pelvis noted Lipase Lactic noted UA UDS Gallbladder ultrasound Diet Patient reports that she does not take any home medications DVT prophylaxis-SCDs PUD prophylaxis-not indicated no history of GERD or GI bleed Discussed plan of care with patient and nurse Counseled patient on lifestyle modifications, diet, and exercise [id number] Preventive counseling healthy eating habits, physical activity, and regular checkups Plan discussed with: Patient Date of Service: Feb 18, 2025 Billing Provider: SONIDO MANCINI Common Visit Codes: [id number] INP/OBS CARE (HIGH) Secondary Visit Codes: [id number] COUNSELING IND SONIDO MANCINI Feb 18, 2025 07:56
[2025-02-18 11:21] LABS: Amphetamine Screen, Urine Neg (NEGATIVE); Barbiturate Scree,Urine Neg (NEGATIVE); Benzodiazephine Screen, Urine Neg (NEGATIVE); Cannabinoid Screen, Urine Neg (NEGATIVE); Cocaine Screen, Urine Neg (NEGATIVE); Opiate Scree,Urine Neg (NEGATIVE); Phencyclidine Screen, Urine Neg (NEGATIVE)
--- NOTE | 2025-02-18 12:22 | DVH ---
INDICATION: Abdominal pain r/o ilana TECHNIQUE: Multiple real-time sonographic images were obtained of the right upper quadrant. COMPARISON: None FINDINGS: The liver demonstrates increased echotexture without focal mass lesions. The liver measures 17 cm. There is no intrahepatic or extrahepatic ductal dilatation. The common duct is not well visu alized due to obscuration from bowel gas. Gallstones. The gallbladder wall measures 3 mm and is within normal limits. The right kidney measures 10 cm. The right kidney is normal in contour, size, and shape. The echogen icity is normal. There is no hydronephrosis. The pancreas is not well visualized due to overlying bowel gas. IMPRESSION: Gallstones. Hepatic steatosis.
[2025-02-19 05:00] VITALS: BP_SYST 102; BP_SYST 131; BP_DIAS 43; BP_DIAS 70; PULSE 110; PULSE 118; RESP 18; TEMP 98.4; TEMP 98.9; O2SAT 97; O2SAT 98
[2025-02-19 07:20] LABS: Hematocrit 32.7 % (36.0-46.0); Hemoglobin 10.3 g/dL (12.2-16.2); Mean Corpuscular Hemoglobin 22.0 pg (28.0-32.0); Mean Corpuscular Volume 70.1 fL (80.0-100.0); Nucleated Red Blood Cells % 0.0 %
[2025-02-19 07:51] LABS: Albumin 4.4 g/dL (3.2-4.8); Alkaline Phosphatase 93 U/L (46-116); Anion Gap 12 (5-15); BUN/Creatinine Ratio 16.7 (10.0-20.0); Bilirubin, Total 0.4 mg/dL (0.2-1.0); Blood Urea Nitrogen 15 mg/dL (9-23); Calcium 8.9 mg/dL (8.7-10.4); Carbon Dioxide 25 mmol/L (20-31); Chloride 106 mmol/L (98-107); Glucose 77 mg/dL (74-106); Potassium 4.1 mmol/L (3.5-5.1); Sodium 143 mmol/L (136-145); Total Protein 7.2 g/dL (5.7-8.2)
[2025-02-19 07:54] LABS: Alanine Aminotransferase 62 U/L (7-40)
[2025-02-19 08:00] VITALS: PULSE 89; RESP 16; O2SAT 99
[2025-02-19 09:00] VITALS: BP 99/63; PULSE 91; RESP 17; TEMP 98.5; O2SAT 96
[2025-02-19 12:40] VITALS: BP 111/78; PULSE 89; RESP 17; TEMP 98.3; O2SAT 95
[2025-02-19 16:37] VITALS: BP 121/83; PULSE 91; RESP 19; TEMP 98.9; O2SAT 99
--- NOTE | 2025-02-19 17:51 | DVHINCON2 ---
Date of service: Feb 19, 2025 History of Present Illness 24-year-old female three months complaining of two day history of epigastric abdominal pain associated with nausea. Past Medical History Obesity Past Surgical History Tonsillectomy Family History Noncontributory Social History No alcohol, tobacco, IV drug use Allergies: Coded Allergies: NO KNOWN ALLERGIES (Unverified , 04/24/17) Home Meds Active Scripts Acetaminophen (Tylenol Extra Strength) 500 Mg Tab, 1000 MG PO Q6HP PRN, #30 TAB prn pain Prov:MILES BROOKS MD 04/29/24 Metoclopramide Hcl (Reglan) 10 Mg Tab, 10 MG PO Q6HPRN PRN, #30 TAB prn n/v Prov:MILES BROOKS MD 04/29/24 Doxylamine-Pyridoxine (DICLEGIS) 1 Tab Tab, 2 TAB OR HS PRN, #60 TAB prn n/v Prov:MILES BROOKS MD 04/29/24 Naproxen (Naproxen) 500 Mg Tab, 500 MG PO BID, #24 TAB Prov:SOHAN LAUREANO 07/13/22 Amoxicillin & Pot Clavulanate (Amoxicillin/Potassium Cla) 875 Mg Tab, 1 TAB PO BID, #14 TAB Prov:SOHAN LAUREANO 07/13/22 Current Medications Current Medications Medications (Trade) Dose Ordered Sig/Alexandrea Route PRN Reason Start Time Stop Time Status Last Admin Ceftriaxone Sodium 50 ml @ 100 mls/hr DAILY@09 IV 02/19/25 09:00 02/19/25 08:50 Vital Signs Vital Signs Date Time Temp Pulse Resp B/P (MAP) Pulse Ox O2 Delivery O2 Flow Rate FiO2 02/19/25 16:37 98.9 91 19 121/83 (96) 99 98.9 02/19/25 08:00 Room Air* 0 21 Physical Exam GEN: Obese female in no acute distress. Alert. HEENT: Normocephalic atraumatic. Moist mucous membranes. Anicteric sclerae. CV: RRR Respiratory: CTAB ABD: Obese abdomen with minimal epigastric tenderness to palpation without guarding or rebound. Abdominal ultrasound: Cholelithiasis. Normal common bile duct. Labs/Diagnostic Data Labs Test 02/19/25 06:17 02/18/25 10:15 02/18/25 04:13 02/18/25 03:53 Range/Units White Blood Count 6.7 # 4.4-10.8 10^3/uL Red Blood Count 4.67 4.0-5.20 10^6/uL Hemoglobin 10.3 L 12.2-16.2 g/dL Hematocrit 32.7 L 36.0-46.0 % Mean Corpuscular Volume 70.1 L 80.0-100.0 fL Mean Corpuscular Hemoglobin 22.0 L 28.0-32.0 pg Mean Corpuscular Hemoglobin Concent 31.4 L 32.0-36.0 g/dL Red Cell Distribution Width 17.4 H 11.8-14.3 % Platelet Count 315 140-450 10^3/uL Mean Platelet Volume 9.2 6.9-10.8 fL Neutrophils (%) (Auto) 60.8 37.0-80.0 % Lymphocytes (%) (Auto) 30.6 10.0-50.0 % Monocytes (%) (Auto) 5.5 0.0-12.0 % Eosinophils (%) (Auto) 2.4 0.0-7.0 % Basophils (%) (Auto) 0.7 0.0-2.0 % Neutrophils # (Auto) 4.1 1.6-8.6 10 ^3/uL Lymphocytes # (Auto) 2.1 0.4-5.4 10 ^3/uL Monocytes # (Auto) 0.4 0-1.3 10 ^3/uL Eosinophils # (Auto) 0.2 0-0.8 10 ^3/uL Basophils # (Auto) 0.1 0-0.2 10 ^3/uL Nucleated Red Blood Cells 0.0 % Sodium Level 143 136-145 mmol/L Potassium Level 4.1 3.5-5.1 mmol/L Chloride Level 106 98-107 mmol/L Carbon Dioxide Level 25 20-31 mmol/L Anion Gap 12 5-15 Blood Urea Nitrogen 15 9-23 mg/dL Creatinine 0.90 0.550-1.02 mg/dL Glomerular Filtration Rate Calc 90 >90 mL/min BUN/Creatinine Ratio 16.7 10.0-20.0 Serum Glucose 77 74-106 mg/dL Calcium Level 8.9 8.7-10.4 mg/dL Total Bilirubin 0.4 0.2-1.0 mg/dL Aspartate Amino Transferase (AST) 45 H 13-40 U/L Alanine Aminotransferase (ALT) 62 H 7-40 U/L Alkaline Phosphatase 93 46-116 U/L Total Protein 7.2 5.7-8.2 g/dL Albumin 4.4 3.2-4.8 g/dL Troponin I High Sensitivity < 3 L </=34 ng/L Urine Color Light-yellow Yellow Urine Clarity Clear Clear Urine pH 5.5 5.0-9.0 Urine Specific [place] 1.021 1.001-1.035 Urine Protein Negative Negative Urine Ketones Negative Negative Urine Blood Negative Negative /uL Urine Nitrite Negative Negative Urine Bilirubin Negative Negative Urine Urobilinogen Normal Negative mg/dL Urine Leukocyte Esterase 1+ Negative /uL Urine RBC None seen 0 - 4 /hpf Urine Microscopic WBC 2 0-5 /HPF Urine Squamous Epithelial Cells Few <5 /hpf Urine Bacteria None seen None Seen /hpf Urine Mucus Few None Seen Urine Glucose Normal Normal mg/dL Urine Test Negative Negative Urine Opiates Screen Neg NEGATIVE Urine Fentanyl Screen Neg NEGATIVE Urine Barbiturates Screen Neg NEGATIVE Urine Phencyclidine Screen Neg NEGATIVE Urine Amphetamines Screen Neg NEGATIVE Urine Benzodiazepines Screen Neg NEGATIVE Urine Cocaine Screen Neg NEGATIVE Urine Cannabinoids Screen Neg NEGATIVE Lactic Acid Level 1.1 0.4-2.0 mmol/L Lipase 35 12-53 U/L Assessment 1. Cholecystitis Plan/Recommendation 1. Laparoscopic cholecystectomy possible open surgery Informed consent: The surgery and its risks including but not limited to infection, bleeding requiring possible blood transfusion with the risk of hepatitis or HIV infection, possible open surgery, possible cystic duct leak or retained common bile duct stone requiring further intervention such as an ERCP were explained to the patient and her . All questions were answered to her satisfaction. The patient expressed verbal understanding and wished to proceed with the surgery. Plan discussed with: Patient, Spouse CHERYL TOUSSAINT MD Feb 19, 2025 17:51
--- NOTE | 2025-02-19 18:05 | DVHPN2 ---
Subjective I am assuming the care of the patient from today onwards. 24-year-old female here with a right upper quadrant epigastric pain radiated to the back associated with nausea found to have cholelithiasis likely acute cholecystitis. 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 Medications Current Medications Medications Dose Ordered Sig/Alexandrea Route Start Time Stop Time Status Last Admin Dose Admin Acetaminophen/ Hydrocodone Bitart 1 tab Q4HP PRN PO 02/18/25 08:00 Ondansetron HCl 4 mg Q4HP PRN IV 02/18/25 08:00 Acetaminophen 650 mg Q6HP PRN PO 02/18/25 08:00 Ceftriaxone Sodium 50 ml @ 100 mls/hr DAILY@09 IV 02/19/25 09:00 02/19/25 08:50 100 MLS/HR Sodium Chloride 1,000 ml @ 100 mls/hr Q10H IV 02/19/25 18:00 Laboratory Results Laboratory Tests 02/19/25 06:17 Chemistry Test 02/19/25 06:17 Albumin 4.4 g/dL (3.2-4.8) Calcium Level 8.9 mg/dL (8.7-10.4) Total Protein 7.2 g/dL (5.7-8.2) LFT Test 02/19/25 06:17 Alanine Aminotransferase (ALT) 62 U/L (7-40) H Alkaline Phosphatase 93 U/L (46-116) Aspartate Amino Transferase (AST) 45 U/L (13-40) H Total Bilirubin 0.4 mg/dL (0.2-1.0) Urinalysis Test 02/18/25 04:13 Urine Color Light-yellow (Yellow) Urine Clarity Clear (Clear) Urine pH 5.5 (5.0-9.0) Urine Specific [place] 1.021 (1.001-1.035) Urine Protein Negative (Negative) Urine Ketones Negative (Negative) Urine Blood Negative /uL (Negative) Urine Nitrite Negative (Negative) Urine Bilirubin Negative (Negative) Urine Urobilinogen Normal mg/dL (Negative) Urine Leukocyte Esterase 1+ /uL (Negative) Urine RBC None seen /hpf (0 - 4) Urine Microscopic WBC 2 /HPF (0-5) Urine Squamous Epithelial Cells Few /hpf (<5) Urine Bacteria None seen /hpf (None Seen) Urine Mucus Few (None Seen) Urine Glucose Normal mg/dL (Normal) Urine Test Negative (Negative) Assessment/Plan Assessment/Plan 24-year-old young female whose three months who is here with abdominal pain and nausea found to have 1 Symptomatic cholelithiasis/acute cholecystitis 2. Epigastric pain associated with nausea secondary to 1. 3. Morbid obesity classIII -deep NPO after midnight, laparoscopic versus open cholecystectomy. Plan discussed with: Patient, Spouse My Orders Orders - VERONICA WALTON MD Procedure Category Date Status Time * Surgical Consult CONS 02/19/25 Transmitted Date of Service: Feb 19, 2025 Billing Provider: VERONICA WALTON MD Common Visit Codes: [id number] INP/OBS CARE(HIGH) VERONICA WALTON MD Feb 19, 2025 18:05
[2025-02-19 21:00] VITALS: BP 118/88; PULSE 87; RESP 17; TEMP 97.6; O2SAT 95
[2025-02-20] VITALS (10 sets, daily range): BP systolic 103–132; BP diastolic 68–85; PULSE 69–116; RESP 15–20; TEMP 97.6–98.1; O2SAT 95–97
[2025-02-20 05:18] LABS: Hematocrit 31.9 % (36.0-46.0); Hemoglobin 10.2 g/dL (12.2-16.2); Mean Corpuscular Hemoglobin 22.5 pg (28.0-32.0); Mean Corpuscular Volume 70.1 fL (80.0-100.0); Nucleated Red Blood Cells % 0.0 %
[2025-02-20 05:34] LABS: Albumin 4.1 g/dL (3.2-4.8); Alkaline Phosphatase 79 U/L (46-116); Anion Gap 12 (5-15); BUN/Creatinine Ratio 23.4 (10.0-20.0); Blood Urea Nitrogen 15 mg/dL (9-23); Calcium 8.8 mg/dL (8.7-10.4); Carbon Dioxide 22 mmol/L (20-31); Glucose 85 mg/dL (74-106); Potassium 4.0 mmol/L (3.5-5.1); Sodium 142 mmol/L (136-145); Total Protein 6.8 g/dL (5.7-8.2)
[2025-02-20 05:35] LABS: Bilirubin, Total 0.3 mg/dL (0.2-1.0)
[2025-02-20 05:37] LABS: Alanine Aminotransferase 44 U/L (7-40); Chloride 108 mmol/L (98-107)
[2025-02-20] MEDS: SODIUM CHLORIDE 0.9% 1,000 ML IV SCH ×2 (06:46→14:30)
--- NOTE | 2025-02-20 07:55 | DVH ---
XY CHEST PORTABLE, HISTORY: PRE-PROCEDURE COMPARISON: None None TECHNICAL DATA: 1 view of the chest was obtained. FINDINGS: Lines and tubes: None Cardiomediastinal silhouette: normal Pulmonary vasculature: normal Lung expansion: normal Lung airspace: normal Lung interstitium: normal Pleura: normal Pneumothorax: no Bones: Unremarkable Other: no IMPRESSION: No acute intrathoracic abnormality.
[2025-02-20] MEDS: SUCCINYLCHOLINE CHLORIDE 20 MG/ML 10ML VIAL IV ONE (12:46)
[2025-02-20] MEDS ORDERED: MIDAZOLAM HCL 2MG/2ML 2ml VIAL (1mg/ml) ONE (12:56)
[2025-02-20] MEDS ORDERED: fentaNYL CITRATE 100 MCG/2 ML VL ONE ×2 (12:56→14:08)
[2025-02-20] MEDS ORDERED: MEPERIDINE HCL (25 MG/ML) 1ML VIAL ONE (12:56)
[2025-02-20] MEDS ORDERED: PROPOFOL 10 MG/ML 20 ML IV ONE (13:25)
[2025-02-20] MEDS: LIDOCAINE W/ EPINEPHRINE 1% 20ML VIAL ONE (13:52)
[2025-02-20] MEDS ORDERED: ROCURONIUM 10MG/ML 10ML VIAL IV ONE (14:18)
--- NOTE | 2025-02-20 14:30 | DVHOP2 ---
Operative Report - 2 Report Details Date: 02/20/25 Preop Diagnosis: 1. Cholecystitis Postop Diagnosis: 1. Same Surgeon: Cheryl Palmer MD Label Press Operator: None Anesthesiologist: Dr. Burrows Anesthesia: General, Local Consent: The surgery and its risks including but not limited to infection, bleeding requiring possible blood transfusion with the risk of hepatitis or HIV infection, possible open surgery, possible cystic duct leak or retained common bile duct stone requiring further intervention such as an ERCP were explained to the patient. All questions were answered to her satisfaction. She expressed verbal understanding and wished to proceed with the surgery. Complications: None Estimated Blood Loss: 50 mL Fluids: 1200 mL Name of Procedure Performed Laparoscopic cholecystectomy Procedure Details Procedure Details: After induction of general anesthesia, patient's abdomen was prepped and draped in standard surgical fashion. A small infraumbilical incision was made and this incision was taken through the abdominal wall down to the fascia which was opened using electrocautery. Peritoneum was then bluntly divided gaining access to the intra-abdominal cavity. Interrupted 0 Vicryl sutures were placed through the fascial incision and using an open technique, Sofia trocar was introduced and secured using the Vicryl sutures. Abdomen was insufflated to 15 mmHg and camera was inserted. Visual examination of the intestine under the fascial incision appeared normal without injury. Under direct visualization, a 5 mm bladeless trocar was placed in the subxiphoid region and two additional 5 mm bladeless trocars were placed in the right upper quadrant all under direct visualization. Examination of the right upper quadrant revealed a very elongated gallbladder. Gallbladder was then grasped and retracted in a cephalad direction. Infundibulum was grasped and retracted laterally. Careful blunt dissection was performed to identify the cystic duct which appeared normal in size. This was clipped and divided using Endoclips without complication. The cystic artery was located just next to the cystic duct and this was also clipped and divided using Endoclips without complication. Gallbladder was then removed from the liver bed using electrocautery. There was no bile or stone spillage during the maneuver. Gallbladder was then removed from the abdominal cavity using an endo pouch bag and sent off the surgical field. Abdomen was then re- insufflated. Hemostasis in the liver bed was achieved using electrocautery. Right upper quadrant was then well irrigated until fluid was clear. [place] hemostatic powder was sprayed onto the gallbladder fossa for additional hemostasis. Trocars were then removed under direct visualization as the abdomen was deflated. Additional interrupted 0 Vicryl sutures were placed through the infraumbilical fascial incision and the sutures were tied down closing off the infraumbilical fascia. Surgical sites were irrigated injected with 20 mL of 1% lidocaine with epinephrine. Skin incisions were closed using koby. Surgical sites were cleaned and dried and dressings were applied. Sponge, needle, instrument count at the end of the case were reported to be correct by the nursing staff. The patient tolerated procedure well and at the time of dictation, she is being awakened from general anesthesia. Specimen: Gallbladder Condition Stable Disposition Still a Patient CHERYL PALMER MD Feb 20, 2025 14:30
[2025-02-20] MEDS: ACETAMINOPHEN IV 1000 MG/100ML (10MG/ML) IV ONE (14:43)
[2025-02-20] MEDS ORDERED: fentaNYL CITRATE 100 MCG/2 ML VL IV PRN (14:45)
[2025-02-20] MEDS ORDERED: MIDAZOLAM HCL 2MG/2ML 2ml VIAL (1mg/ml) IV PRN (14:45)
[2025-02-20] MEDS ORDERED: hydrALAZINE HCL 20 MG/ML VL IV PRN (14:45)
[2025-02-20] MEDS ORDERED: MORPHINE SULFATE 4 MG/ML SYR/VIAL IV PRN (14:45)
[2025-02-20] MEDS ORDERED: ONDANSETRON HCL 4 MG/2 ML VIAL IV PRN (14:45)
[2025-02-20] MEDS: HYDROmorphone HCL 2 MG/ML VL/or syr IV PRN (14:49)
[2025-02-20] MEDS: ACETAMINOPHEN IV 100 ML IV ONE (15:06)
[2025-02-20] MEDS: HYDROmorphone HCL 2 MG/ML VL/or syr ONE (15:07)
--- NOTE | 2025-02-20 16:19 | DVHPN2 ---
Subjective Patient is currently in OR getting laparoscopic versus open cholecystectomy. Changes from previous H/P or p: No Changes Gastrointestinal: Abdominal Pain Objective Vitals Vital Signs Date Time Temp Pulse Resp B/P (MAP) Pulse Ox O2 Delivery O2 Flow Rate FiO2 02/20/25 15:26 103 20 117/72 02/20/25 14:40 Mask 6.0 95 02/20/25 14:40 98.8 95 98.8 Intake/Output Intake and Output 02/20/25 07:00 Intake Total 1690 ml Balance 1690 ml Intake Oral 1640 ml IV Total 50 ml # Voids 8 Medications Current Medications Medications Dose Ordered Sig/Alexandrea Route Start Time Stop Time Status Last Admin Dose Admin Acetaminophen/ Hydrocodone Bitart 1 tab Q4HP PRN PO 02/18/25 08:00 Ondansetron HCl 4 mg Q4HP PRN IV 02/18/25 08:00 Acetaminophen 650 mg Q6HP PRN PO 02/18/25 08:00 Ceftriaxone Sodium 50 ml @ 100 mls/hr DAILY@09 IV 02/19/25 09:00 02/20/25 09:39 100 MLS/HR Sodium Chloride 1,000 ml @ 75 mls/hr [id number] IV 02/20/25 14:30 Laboratory Results Laboratory Tests 02/20/25 04:29 Chemistry Test 02/20/25 04:29 Albumin 4.1 g/dL (3.2-4.8) Calcium Level 8.8 mg/dL (8.7-10.4) Total Protein 6.8 g/dL (5.7-8.2) LFT Test 02/20/25 04:29 Alanine Aminotransferase (ALT) 44 U/L (7-40) H Alkaline Phosphatase 79 U/L (46-116) Aspartate Amino Transferase (AST) 26 U/L (13-40) Total Bilirubin 0.3 mg/dL (0.2-1.0) Urinalysis Test 02/18/25 04:13 Urine Color Light-yellow (Yellow) Urine Clarity Clear (Clear) Urine pH 5.5 (5.0-9.0) Urine Specific [place] 1.021 (1.001-1.035) Urine Protein Negative (Negative) Urine Ketones Negative (Negative) Urine Blood Negative /uL (Negative) Urine Nitrite Negative (Negative) Urine Bilirubin Negative (Negative) Urine Urobilinogen Normal mg/dL (Negative) Urine Leukocyte Esterase 1+ /uL (Negative) Urine RBC None seen /hpf (0 - 4) Urine Microscopic WBC 2 /HPF (0-5) Urine Squamous Epithelial Cells Few /hpf (<5) Urine Bacteria None seen /hpf (None Seen) Urine Mucus Few (None Seen) Urine Glucose Normal mg/dL (Normal) Urine Test Negative (Negative) Assessment/Plan Assessment/Plan 24-year-old young female whose three months who is here with abdominal pain and nausea found to have 1 Symptomatic cholelithiasis/acute cholecystitis 2. Epigastric pain associated with nausea secondary to 1. 3. Morbid obesity classIII -pain meds as needed, laparoscopic versus open cholecystectomy. Plan discussed with: Other Date of Service: Feb 20, 2025 Billing Provider: VERONICA WALTON MD Common Visit Codes: [id number] INP/OBS CARE(HIGH) VERONICA WALTON MD Feb 20, 2025 16:19
[2025-02-20] MEDS: ONDANSETRON HCL 4 MG/2 ML VIAL IV PRN (18:02)
[2025-02-20] MEDS: HYDROcodone-ACET 5/325MG TAB PO PRN (18:03)
[2025-02-20] MEDS: ACETAMINOPHEN 325 MG TAB PO PRN (21:12)
[2025-02-21] VITALS (7 sets, daily range): BP systolic 97–126; BP diastolic 62–83; PULSE 81–92; RESP 12–18; TEMP 97.2–98; O2SAT 89–97
[2025-02-21 06:40] LABS: Hematocrit 31.5 % (36.0-46.0); Hemoglobin 10.0 g/dL (12.2-16.2); Mean Corpuscular Hemoglobin 22.6 pg (28.0-32.0); Mean Corpuscular Volume 70.9 fL (80.0-100.0); Nucleated Red Blood Cells % 0.1 %
[2025-02-21 07:01] LABS: Alkaline Phosphatase 75 U/L (46-116); Anion Gap 9 (5-15); BUN/Creatinine Ratio 9.7 (10.0-20.0); Calcium 8.8 mg/dL (8.7-10.4); Carbon Dioxide 24 mmol/L (20-31); Potassium 4.1 mmol/L (3.5-5.1); Sodium 142 mmol/L (136-145)
[2025-02-21 07:02] LABS: Albumin 4.1 g/dL (3.2-4.8); Total Protein 7.0 g/dL (5.7-8.2)
[2025-02-21 07:25] LABS: Alanine Aminotransferase 42 U/L (7-40); Bilirubin, Total 0.3 mg/dL (0.2-1.0); Blood Urea Nitrogen 6 mg/dL (9-23); Chloride 109 mmol/L (98-107); Glucose 114 mg/dL (74-106)
[2025-02-21] MEDS: MORPHINE SULFATE INJ 2 MG/ml SYRG IV PRN (12:38)
--- NOTE | 2025-02-21 13:11 | DVHPN2 ---
Progress Note - Dictate Date Seen: Feb 21, 2025 Medical Necessity Reason Pt with a Central, PICC or Fol: No Subjective E: no major events o/n. c/o min incisional pain. annie liquid diet. vital signs Vital Sign Date Time Temp Pulse Resp B/P (MAP) Pulse Ox O2 Delivery O2 Flow Rate FiO2 02/21/25 12:43 97.2 82 13 118/82 (94) 95 97.2 02/20/25 20:00 Room Air* 0 21 Total Intake and Output 02/20/25 02/20/25 02/21/25 15:00 23:00 07:00 Intake Total 500 ml 0 ml 545 ml Balance 500 ml 0 ml 545 ml medications Current Medications Medications Dose Ordered Sig/Alexandrea Route Start Time Stop Time Status Last Admin Dose Admin Acetaminophen/ Hydrocodone Bitart 1 tab Q4HP PRN PO 02/18/25 08:00 02/21/25 09:35 1 TAB Ondansetron HCl 4 mg Q4HP PRN IV 02/18/25 08:00 02/20/25 18:02 4 MG Acetaminophen 650 mg Q6HP PRN PO 02/18/25 08:00 02/21/25 06:16 650 MG Ceftriaxone Sodium 50 ml @ 100 mls/hr DAILY@09 IV 02/19/25 09:00 02/21/25 09:35 100 MLS/HR Sodium Chloride 1,000 ml @ 75 mls/hr [id number] IV 02/20/25 14:30 02/21/25 03:50 75 MLS/HR Morphine Sulfate 2 mg Q4HPRN PRN IV 02/21/25 12:00 02/21/25 12:38 2 MG objective GEN: NAD ABD: surgical dressings clean and dry. laboratory and microbiology Laboratory Tests 02/21/25 06:11 Test 02/21/25 06:11 Range/Units Serum Glucose 114 H 74-106 mg/dL Assessment/Plan A: 1. s/p lap cholecystectomy POD #1 doing well. P: 1. stable from surgery POV for DC 2. remove bandages tomorrow. ok to get incisions wet tomorrow. 3. f/u on Mon clinic. call [phone] for appt today Plan discussed with: Patient CHERYL TOUSSAINT MD Feb 21, 2025 13:11
--- NOTE | 2025-02-21 14:11 | DVHPN2 ---
Reviewed: H&P Changes from previous H/P or p: No Changes General: Per HPI Gastrointestinal: Abdominal Pain Objective Vitals Vital Signs Date Time Temp Pulse Resp B/P (MAP) Pulse Ox O2 Delivery O2 Flow Rate FiO2 02/21/25 12:43 97.2 82 13 118/82 (94) 95 97.2 02/21/25 08:10 Room Air* 0 21 Intake/Output Intake and Output 02/21/25 07:00 Intake Total 1045 ml Balance 1045 ml Intake Oral 545 ml IV Total 500 ml # Voids 7 # Bowel Movements 1 Exam GEN: Healthy appearing, well-developed, NAD. HEENT: NC/AT; MMM. CV: RRR, no m/r/g. LUNGS: CTAB, no w/r/c. ABD: Tender to palpation at surgical incision sites, dressings are CDI, bowel sounds hypoactive, EXT: skin Warm, well perfused. no rashes. No clubbing, cyanosis, or edema. NEURO: Ambulating with no limitations. No focal deficits. Medications Current Medications Medications Dose Ordered Sig/Alexandrea Route Start Time Stop Time Status Last Admin Dose Admin Acetaminophen/ Hydrocodone Bitart 1 tab Q4HP PRN PO 02/18/25 08:00 02/21/25 09:35 1 TAB Ondansetron HCl 4 mg Q4HP PRN IV 02/18/25 08:00 02/20/25 18:02 4 MG Acetaminophen 650 mg Q6HP PRN PO 02/18/25 08:00 02/21/25 06:16 650 MG Ceftriaxone Sodium 50 ml @ 100 mls/hr DAILY@09 IV 02/19/25 09:00 02/21/25 09:35 100 MLS/HR Sodium Chloride 1,000 ml @ 75 mls/hr [id number] IV 02/20/25 14:30 02/21/25 03:50 75 MLS/HR Morphine Sulfate 2 mg Q4HPRN PRN IV 02/21/25 12:00 02/21/25 12:38 2 MG Laboratory Results Laboratory Tests 02/21/25 06:11 Chemistry Test 02/21/25 06:11 Albumin 4.1 g/dL (3.2-4.8) Calcium Level 8.8 mg/dL (8.7-10.4) Total Protein 7.0 g/dL (5.7-8.2) LFT Test 02/21/25 06:11 Alanine Aminotransferase (ALT) 42 U/L (7-40) H Alkaline Phosphatase 75 U/L (46-116) Aspartate Amino Transferase (AST) 27 U/L (13-40) Total Bilirubin 0.3 mg/dL (0.2-1.0) Urinalysis Test 02/18/25 04:13 Urine Color Light-yellow (Yellow) Urine Clarity Clear (Clear) Urine pH 5.5 (5.0-9.0) Urine Specific [place] 1.021 (1.001-1.035) Urine Protein Negative (Negative) Urine Ketones Negative (Negative) Urine Blood Negative /uL (Negative) Urine Nitrite Negative (Negative) Urine Bilirubin Negative (Negative) Urine Urobilinogen Normal mg/dL (Negative) Urine Leukocyte Esterase 1+ /uL (Negative) Urine RBC None seen /hpf (0 - 4) Urine Microscopic WBC 2 /HPF (0-5) Urine Squamous Epithelial Cells Few /hpf (<5) Urine Bacteria None seen /hpf (None Seen) Urine Mucus Few (None Seen) Urine Glucose Normal mg/dL (Normal) Urine Test Negative (Negative) Labs and/or images reviewed: Labs reviewed by me, Image(s) reviewed by me Assessment/Plan Assessment/Plan 02/21: Patient postop day 1, serum by surgery but still utilizing IV pain control. We will monitor for 1 more day, advance diet to full liquid diet. 24-year-old young female whose three months who is here with abdominal pain and nausea found to have 1 Symptomatic cholelithiasis/acute cholecystitis s/p laparoscopic cholecystectomy 02/20/2025 2. Epigastric pain associated with nausea secondary to 1. 3. Morbid obesity classIII Plan: - Full liquid diet - continue IV analgesia prn - Continue IV antiemetics - continue IV antibiotics Ctx Med surge Full code Plan discussed with: Patient Date of Service: Feb 21, 2025 Billing Provider: FLORY YADAV MD Common Visit Codes: [id number] INP/OBS CARE(HIGH) FLORY YADAV MD Feb 21, 2025 14:11
--- NOTE | 2025-02-21 14:44 | MEDREC ---
[facility] ASP Intervention Section I [facility] ASP Intervention: Review courses of therapy (PLEASE CONSIDER ADDING METRONIDAZOLE FOR ANAEROBIC COVERAGE ) CHELSEY BAKER PHARMACIST Feb 21, 2025 14:44
[2025-02-21] MEDS: KETOROLAC TROMETH 30 MG/ML 1ML VIAL IV ONE (16:27)
[2025-02-22 01:00] VITALS: BP 120/75; PULSE 86; RESP 18; TEMP 97.9; O2SAT 94
[2025-02-22 05:00] VITALS: BP_SYST 127; BP_SYST 133; BP_DIAS 90; BP_DIAS 92; PULSE 102; PULSE 79; RESP 16; RESP 20; TEMP 97.5; TEMP 97.8; O2SAT 95; O2SAT 96
[2025-02-22 07:16] LABS: Hematocrit 30.4 % (36.0-46.0); Hemoglobin 9.6 g/dL (12.2-16.2); Mean Corpuscular Hemoglobin 22.4 pg (28.0-32.0)
[2025-02-22 07:18] LABS: Mean Corpuscular Volume 70.8 fL (80.0-100.0); Nucleated Red Blood Cells % 0.0 %
[2025-02-22 08:00] VITALS: PULSE 87; RESP 16; O2SAT 97
[2025-02-22 09:00] VITALS: BP 130/86; PULSE 87; RESP 16; TEMP 97.6; O2SAT 97
--- NOTE | 2025-02-22 10:44 | DVHDS2 ---
Discharge Summary Date of Admission Feb 18, 2025 at 07:53 Date of Discharge: Feb 22, 2025 Labs/Diagnostic Data: Laboratory Results Test 02/22/25 04:38 02/21/25 06:11 02/18/25 10:15 02/18/25 04:13 White Blood Count 8.5 10^3/uL (4.4-10.8) Red Blood Count 4.29 10^6/uL (4.0-5.20) Hemoglobin 9.6 g/dL (12.2-16.2) Hematocrit 30.4 % (36.0-46.0) Mean Corpuscular Volume 70.8 fL (80.0-100.0) Mean Corpuscular Hemoglobin 22.4 pg (28.0-32.0) Mean Corpuscular Hemoglobin Concent 31.6 g/dL (32.0-36.0) Red Cell Distribution Width 17.4 % (11.8-14.3) Platelet Count 308 10^3/uL (140-450) Mean Platelet Volume 9.7 fL (6.9-10.8) Neutrophils (%) (Auto) 60.4 % (37.0-80.0) Lymphocytes (%) (Auto) 31.9 % (10.0-50.0) Monocytes (%) (Auto) 6.1 % (0.0-12.0) Eosinophils (%) (Auto) 1.1 % (0.0-7.0) Basophils (%) (Auto) 0.5 % (0.0-2.0) Neutrophils # (Auto) 5.1 10 ^3/uL (1.6-8.6) Lymphocytes # (Auto) 2.7 10 ^3/uL (0.4-5.4) Monocytes # (Auto) 0.5 10 ^3/uL (0-1.3) Eosinophils # (Auto) 0.1 10 ^3/uL (0-0.8) Basophils # (Auto) 0 10 ^3/uL (0-0.2) Nucleated Red Blood Cells 0.0 % Sodium Level 142 mmol/L (136-145) Potassium Level 4.1 mmol/L (3.5-5.1) Chloride Level 109 mmol/L (98-107) Carbon Dioxide Level 24 mmol/L (20-31) Anion Gap 9 (5-15) Blood Urea Nitrogen 6 mg/dL (9-23) Creatinine 0.62 mg/dL (0.550-1.02) Glomerular Filtration Rate Calc 126 mL/min (>90) BUN/Creatinine Ratio 9.7 (10.0-20.0) Serum Glucose 114 mg/dL (74-106) Calcium Level 8.8 mg/dL (8.7-10.4) Total Bilirubin 0.3 mg/dL (0.2-1.0) Aspartate Amino Transferase (AST) 27 U/L (13-40) Alanine Aminotransferase (ALT) 42 U/L (7-40) Alkaline Phosphatase 75 U/L (46-116) Total Protein 7.0 g/dL (5.7-8.2) Albumin 4.1 g/dL (3.2-4.8) Troponin I High Sensitivity < 3 ng/L (</=34) Urine Color Light-yellow (Yellow) Urine Clarity Clear (Clear) Urine pH 5.5 (5.0-9.0) Urine Specific [place] 1.021 (1.001-1.035) Urine Protein Negative (Negative) Urine Ketones Negative (Negative) Urine Blood Negative /uL (Negative) Urine Nitrite Negative (Negative) Urine Bilirubin Negative (Negative) Urine Urobilinogen Normal mg/dL (Negative) Urine Leukocyte Esterase 1+ /uL (Negative) Urine RBC None seen /hpf (0 - 4) Urine Microscopic WBC 2 /HPF (0-5) Urine Squamous Epithelial Cells Few /hpf (<5) Urine Bacteria None seen /hpf (None Seen) Urine Mucus Few (None Seen) Urine Glucose Normal mg/dL (Normal) Urine Test Negative (Negative) Urine Opiates Screen Neg (NEGATIVE) Urine Fentanyl Screen Neg (NEGATIVE) Urine Barbiturates Screen Neg (NEGATIVE) Urine Phencyclidine Screen Neg (NEGATIVE) Urine Amphetamines Screen Neg (NEGATIVE) Urine Benzodiazepines Screen Neg (NEGATIVE) Urine Cocaine Screen Neg (NEGATIVE) Urine Cannabinoids Screen Neg (NEGATIVE) Test 02/18/25 03:53 Lactic Acid Level 1.1 mmol/L (0.4-2.0) Lipase 35 U/L (12-53) Other Laboratory Tests 02/22/25 04:38 02/21/25 06:11 Brief Hx & Hospital Course: 24-year-old young female whose three months who is here with abdominal pain and nausea - CT without concern for any cholecystitis. Right upper quadrant ultrasound showing significant gallstones and hepatic steatosis. Surgery consulted. Surgery concern for symptomatic cholelithiasis. 02/21: Patient postop day 1 status post laparoscopic cholecystectomy, serum by surgery but still utilizing IV pain control. We will monitor for 1 more day, advance diet to full liquid diet. 02/22: Patient is feeling better, having some acid reflux. Pain is much better in the abdomen incision sites, passing gas now. Stable for discharge. Pain tolerable with p.o. analgesia. We will discharge with Augmentin 875 twice daily for 3 days, for nausea Zofran ODT 4 mg can take up to every 6 hours,. For pain 1st line Tylenol, second-line ibuprofen, 3rd line take [place] 5 mg up to every 6 hours as needed for pain. If pain continues to worsen/sudden onset recommend returning to nearest ED. Take Protonix 40 mg daily for next 7 days. Continuing to full liquid diet 1 week. Continue other home medications not mentioned above. Close follow up with PCP to review discharge, Diagnosis: Symptomatic cholelithiasis/acute cholecystitis s/p laparoscopic cholecystectomy 02/20/2025 Epigastric pain associated with nausea secondary to 1. Hepatic steatosis, [place] possible Morbid obesity class III BMI 50.3 Plan: - Augmentin 875 twice daily for 3 days, - for nausea Zofran ODT 4 mg can take up to every 6 hours,. - For pain 1st line Tylenol, second-line ibuprofen, 3rd line take [place] 5 mg up to every 6 hours as needed for pain. - If pain continues to worsen/sudden onset recommend returning to nearest ED. Take Protonix 40 mg daily for next 7 days. - Continuing to full liquid diet 1 week. - Continue other home medications not mentioned above. - Close follow up with PCP to review discharge, Condition at Discharge: Stable Final Diagnosis/Problems List Symptomatic cholelithiasis/acute cholecystitis s/p laparoscopic cholecystectomy 02/20/2025 Epigastric pain associated with nausea secondary to 1. Hepatic steatosis, [place] possible Morbid obesity class III BMI 50.3 Discharge Disposition: Home Discharge Instruct/Medications Scheduled Amoxicillin & Pot Clavulanate (Amoxicillin/Potassium Cla), 1 TAB PO BID Naproxen (Naproxen), 500 MG PO BID Scheduled PRN Acetaminophen (Tylenol Extra Strength), 1,000 MG PO Q6HP PRN Doxylamine-Pyridoxine (Diclegis), 2 TAB OR HS PRN Metoclopramide Hcl (Reglan), 10 MG PO Q6HPRN PRN Discharge Statement: "Patient was advised to return to the ER or call 911 if any headaches, dizziness, shortness of breath, chest pain, abdominal pain, bleeding, fevers, or worsening of medical condition. Patient was counseled about treatment plan, medications, possible side effects, patientverbalized understanding. All questions were answered to the best of my ability. This discharge took greater then 30 minutes in planning, reviewing documentation, counseling the patient, and discussing with other team members." Date of Service: Feb 22, 2025 Billing Provider: FLORY YADAV MD Common Visit Codes: [id number] DISCH DAY >30min FLORY YADAV MD Feb 22, 2025 10:44
[2025-02-22] MEDS ORDERED: OMEP-434 PO (12:26)
[2025-02-22] MEDS ORDERED: AUG875T PO (12:26)
[2025-02-22] MEDS ORDERED: ZOFR4T PO (12:26)
[2025-02-22] MEDS ORDERED: HYDR-4902 PO (12:26)
[2025-02-22 13:00] VITALS: BP 119/85; PULSE 97; RESP 18; TEMP 98.1; O2SAT 99
[2025-02-22] MEDS: PANTOPRAZOLE 40 MG/10 ML VIAL INJ IV SCH (14:30)
[2025-02-22] MEDS: IBUPROFEN 600 MG TAB PO ONE (14:57)
--- NOTE | 2025-02-22 16:00 | DVH ---
EXAM: XY CHEST PORTABLE Indication: chest pain Technique: Single frontal view of the chest was obtained Comparison: XY CHEST PORTABLE on DOS: 02/20/25 FINDINGS: Lines and Tubes: None Lungs: No focal consolidation. Pleura: No effusion. No pneumothorax. Cardiomediastinal contours: Unremarkable Bones: No acute osseous abnormality. IMPRESSION: No acute cardiopulmonary disease. [employer]
== END 2025-02-22 16:18 | disposition home or self-care (01) | DRG 418 ==
LOC: ER 03:20 → OVERFLOW 07:53 → WEST WING 18:46
PROVIDERS: ADMIT Student in an Organized Health Care Education/Training Program; ATTEND Student in an Organized Health Care Education/Training Program
PROC: 0FT44ZZ Resection of Gallbladder, Percutaneous Endoscopic Approach (ICD-10-PCS; principal; 2025-02-20 12:54)
DX: K80.00 Calculus of gallbladder with acute cholecystitis without obstruction (principal); Z68.43 Body mass index [BMI] 50.0-59.9, adult; K76.0 Fatty (change of) liver, not elsewhere classified; D50.9 Iron deficiency anemia, unspecified; R79.89 Other specified abnormal findings of blood chemistry; I10 Essential (primary) hypertension; E66.813 Obesity, class 3; K21.9 Gastro-esophageal reflux disease without esophagitis; Z79.899 Other long term (current) drug therapy
CPT/HCPCS: 36415; 71045; 74176; 76705; 80053; 80307; 81001; 81025; 83605; 83690; 84484; 85025; 96365; 96372; G0378; J0131; J0330; J1100; J1885; J2250; J2405; J2704